=== PATIENT | male | born 1945 ===

== ENCOUNTER 2017-02-28 09:36 | Day surgery (SDC) | payer OTHER ==
[~2017-02-28 09:36] MED LIST: ACET325 PO; ANCEF 1 GM1 GM/50 ML IV; ASPI81CH PO; ASPI81EC PO; ATEN50 PO; BISA5EC PO; Bactrim Ds Tab1 EACH PO; CALCA500CH PO; CEPH500 PO; CHOL10002 PO; CLOB.05TC TOP; CLOB.05TO TP; DESO.05TCA TOP; DOCU100 PO; Desyrel50 MG PO; FLONASE ALLERG9.9 ML; FLONASE ALLERG9.9 ML NS; FOLI1 PO; FURO40 PO; Flomax0.4 MG PO; Flonase 0.05% N16 GM; GLIP5 PO; GLUC500 PO; HYDACE10B PO; HYDACE5 PO; HYDR1TAB94 PO; INS70/30I SUBQ; INSU100I6 SC; INSUASPI SC; INSULANI SUBQ; INSULANPEN SC; INSULANPEN SQ; IRON PO; IRON325 MG PO; K-Dur20 MEQ PO; Keflex500 MG PO; LEVE500 PO; LEVEMIR FL100 UNIT/1 SC; LIDO2L TOP; LISI20 PO; Lisinopril2.5 MG PO; MAGNESIUM250 MG PO; MELA3 PO; METF500 PO; METTREX2.5 PO; NYST100TO TOP; NYSTRITC TOP; Norco 10-325 T1 EACH; Norco 10-325 T1 EACH PO; Norco 5-325 Ta1 EACH PO; Novolog Fl100 UNIT/1 SC; OMEP20ER PO; Omeprazole20 M1 PO; POTA10T PO; POTASSIUM PO; POTCHL20ER PO; POTPHO PO; Percocet 5-3251 EACH PO; Phos-Nak Packe1 EACH PO; SENN187 PO; SULTRIDS PO; TAMS.4ER PO; TOUJEO SOL300 UNIT/1 SC; TRAZ100 PO; TRIA80TC TOP; Vibramycin100 MG PO; Voltaren100 GM TP; XARELTO10 MG PO; XARELTO15 MG PO
[2017-04-17] MEDS ORDERED: FURO40 PO (09:22)
[2017-04-17] MEDS ORDERED: BISA10S PR (09:22)
[2017-04-17] MEDS ORDERED: BISM87SU PO (09:23)
[2017-04-17] MEDS ORDERED: CVS DISPOSABLE399 ML (09:23)
[2017-04-17] MEDS ORDERED: [UNRECOGNIZED DRUG - OTHER] (09:23)
[2017-04-17] MEDS ORDERED: Voltaren100 GM TOP (09:24)
[2017-04-17] MEDS ORDERED: ACET325 PO (09:24)
[2017-04-17] MEDS ORDERED: Milk Of Ma400 MG/5 M PO (09:24)
[2017-04-17] MEDS ORDERED: HYDR1TAB94 PO (09:25)
[2017-04-17] MEDS ORDERED: DOCU100 PO (20:42)
[2017-04-17] MEDS ORDERED: POTCHL20ER PO (20:46)
[2017-04-17] MEDS ORDERED: TOUJEO SOL300 UNIT/1 SC (20:49)
[2017-04-17] MEDS ORDERED: XARELTO20 MG PO (20:51)
[2017-04-19] MEDS ORDERED: LEVFLO500 PO (09:32)
[2017-04-19] MEDS ORDERED: Novolog Fl100 UNIT/1 SC (09:32)
[2017-05-07] MEDS ORDERED: K-Dur20 MEQ PO (14:46)
[2017-09-20] MEDS ORDERED: Lisinopril2.5 MG PO (18:00)
[2017-09-20] MEDS ORDERED: AQUAPHOR99 GM TOP (18:02)
[2017-09-20] MEDS ORDERED: ASPERCREME76.5 GM TOP (18:03)
[2017-09-20] MEDS ORDERED: CLOB.05TO TOP (18:05)
[2017-09-20] MEDS ORDERED: Milk Of Ma400 MG/5 M PO (18:07)
[2017-09-21] MEDS ORDERED: SUPRAX400 MG PO (13:56)
== END 2017-02-28 23:21 | disposition home or self-care (01) ==
LOC: WOUND 09:36
DX: Z48.00 Encounter for change or removal of nonsurgical wound dressing (principal); L97.922 Non-pressure chronic ulcer of unspecified part of left lower leg with fat layer exposed; I89.0 Lymphedema, not elsewhere classified; M70.21 Olecranon bursitis, right elbow; S60.512A Abrasion of left hand, initial encounter
CPT/HCPCS: G0463

== ENCOUNTER 2017-03-07 10:00 | Day surgery (SDC) | payer OTHER ==
[2017-04-17] MEDS ORDERED: BISA10S PR (09:22)
[2017-04-17] MEDS ORDERED: FURO40 PO (09:22)
[2017-04-17] MEDS ORDERED: [UNRECOGNIZED DRUG - OTHER] (09:23)
[2017-04-17] MEDS ORDERED: CVS DISPOSABLE399 ML (09:23)
[2017-04-17] MEDS ORDERED: BISM87SU PO (09:23)
[2017-04-17] MEDS ORDERED: Milk Of Ma400 MG/5 M PO (09:24)
[2017-04-17] MEDS ORDERED: Voltaren100 GM TOP (09:24)
[2017-04-17] MEDS ORDERED: ACET325 PO (09:24)
[2017-04-17] MEDS ORDERED: HYDR1TAB94 PO (09:25)
[2017-04-17] MEDS ORDERED: DOCU100 PO (20:42)
[2017-04-17] MEDS ORDERED: POTCHL20ER PO (20:46)
[2017-04-17] MEDS ORDERED: TOUJEO SOL300 UNIT/1 SC (20:49)
[2017-04-17] MEDS ORDERED: XARELTO20 MG PO (20:51)
[2017-04-19] MEDS ORDERED: LEVFLO500 PO (09:32)
[2017-04-19] MEDS ORDERED: Novolog Fl100 UNIT/1 SC (09:32)
[2017-05-07] MEDS ORDERED: K-Dur20 MEQ PO (14:46)
[2017-09-20] MEDS ORDERED: Lisinopril2.5 MG PO (18:00)
[2017-09-20] MEDS ORDERED: AQUAPHOR99 GM TOP (18:02)
[2017-09-20] MEDS ORDERED: ASPERCREME76.5 GM TOP (18:03)
[2017-09-20] MEDS ORDERED: CLOB.05TO TOP (18:05)
[2017-09-20] MEDS ORDERED: Milk Of Ma400 MG/5 M PO (18:07)
[2017-09-21] MEDS ORDERED: SUPRAX400 MG PO (13:56)
== END 2017-03-07 11:12 | disposition home or self-care (01) ==
LOC: WOUND 10:00
DX: Z48.00 Encounter for change or removal of nonsurgical wound dressing (principal); L97.922 Non-pressure chronic ulcer of unspecified part of left lower leg with fat layer exposed; I89.0 Lymphedema, not elsewhere classified; M70.21 Olecranon bursitis, right elbow; S60.512A Abrasion of left hand, initial encounter
CPT/HCPCS: G0463

== ENCOUNTER 2017-03-14 10:00 | Day surgery (SDC) | payer OTHER ==
[2017-04-17] MEDS ORDERED: FURO40 PO (09:22)
[2017-04-17] MEDS ORDERED: BISA10S PR (09:22)
[2017-04-17] MEDS ORDERED: CVS DISPOSABLE399 ML (09:23)
[2017-04-17] MEDS ORDERED: [UNRECOGNIZED DRUG - OTHER] (09:23)
[2017-04-17] MEDS ORDERED: BISM87SU PO (09:23)
[2017-04-17] MEDS ORDERED: ACET325 PO (09:24)
[2017-04-17] MEDS ORDERED: Milk Of Ma400 MG/5 M PO (09:24)
[2017-04-17] MEDS ORDERED: Voltaren100 GM TOP (09:24)
[2017-04-17] MEDS ORDERED: HYDR1TAB94 PO (09:25)
[2017-04-17] MEDS ORDERED: DOCU100 PO (20:42)
[2017-04-17] MEDS ORDERED: POTCHL20ER PO (20:46)
[2017-04-17] MEDS ORDERED: TOUJEO SOL300 UNIT/1 SC (20:49)
[2017-04-17] MEDS ORDERED: XARELTO20 MG PO (20:51)
[2017-04-19] MEDS ORDERED: Novolog Fl100 UNIT/1 SC (09:32)
[2017-04-19] MEDS ORDERED: LEVFLO500 PO (09:32)
[2017-05-07] MEDS ORDERED: K-Dur20 MEQ PO (14:46)
[2017-09-20] MEDS ORDERED: Lisinopril2.5 MG PO (18:00)
[2017-09-20] MEDS ORDERED: AQUAPHOR99 GM TOP (18:02)
[2017-09-20] MEDS ORDERED: ASPERCREME76.5 GM TOP (18:03)
[2017-09-20] MEDS ORDERED: CLOB.05TO TOP (18:05)
[2017-09-20] MEDS ORDERED: Milk Of Ma400 MG/5 M PO (18:07)
[2017-09-21] MEDS ORDERED: SUPRAX400 MG PO (13:56)
== END 2017-03-14 11:02 | disposition home or self-care (01) ==
LOC: WOUND 10:00
DX: Z48.00 Encounter for change or removal of nonsurgical wound dressing (principal); L97.922 Non-pressure chronic ulcer of unspecified part of left lower leg with fat layer exposed; I89.0 Lymphedema, not elsewhere classified; M70.21 Olecranon bursitis, right elbow; S60.512A Abrasion of left hand, initial encounter
CPT/HCPCS: G0463

== ENCOUNTER → 2017-03-19 | Outpatient (CLI) | payer OTHER ==
[~2017-03-19] MED LIST changes: +AQUAPHOR99 GM TOP; +ASPERCREME76.5 GM TOP; +AZIT500 PO; +BISA10S PR; +BISM87SU PO; +BUME2 PO; +CLOB.05TO TOP; +CVS DISPOSABLE399 ML; +Ferrex 150 For1 EACH PO; +LEVFLO500 PO; +MAGOXI400 PO; +Milk Of Ma400 MG/5 M PO; +NITR100CA PO; +SUPRAX400 MG PO; +Voltaren100 GM TOP; +XARELTO20 MG PO; +[UNRECOGNIZED DRUG - OTHER]
[2017-03-19 14:53] LABS: Source, Urine Catheter
[2017-03-19 16:13] LABS: Appearance, Urine Hazy (Clear); Bilirubin, Urine Neg (Neg); Blood, Urine 5+ (Neg); Glucose Qualitative, Urine 4+ (Neg); Ketones, Urine Neg (Neg); Leukocyte Esterase, Urine 3+ (Neg); Nitrite, Urine Neg (Neg); Protein, Urine Neg (Neg); Urobilinogen, Urine NORM (Normal)
[2017-03-19 16:28] LABS: Color, Urine Amber (P-Yellow)
[2017-03-19 16:33] LABS: Yeast/Fungi Urine Few /hpf
[2017-03-19 16:34] LABS: Red Blood Cells, Urine 25-50 /hpf (0-2); Squamous Epithelial Cells Not Seen /hpf (Few)
[2017-03-19 16:35] LABS: Bacteria Few /hpf
== END | disposition home or self-care (01) ==
LOC: LAB 14:52
DX: Z09 Encounter for follow-up examination after completed treatment for conditions other than malignant neoplasm (principal); Z87.440 Personal history of urinary (tract) infections
CPT/HCPCS: 81001; 87086

== ENCOUNTER 2017-03-28 00:52 | Day surgery (SDC) | payer OTHER ==
[~2017-03-28 00:52] MED LIST changes: -AQUAPHOR99 GM TOP; -ASPERCREME76.5 GM TOP; -AZIT500 PO; -BISA10S PR; -BISM87SU PO; -BUME2 PO; -CLOB.05TO TOP; -CVS DISPOSABLE399 ML; -Ferrex 150 For1 EACH PO; -LEVFLO500 PO; -MAGOXI400 PO; -Milk Of Ma400 MG/5 M PO; -NITR100CA PO; -SUPRAX400 MG PO; -Voltaren100 GM TOP; -XARELTO20 MG PO; -[UNRECOGNIZED DRUG - OTHER]
[2017-04-17] MEDS ORDERED: BISA10S PR (09:22)
[2017-04-17] MEDS ORDERED: FURO40 PO (09:22)
[2017-04-17] MEDS ORDERED: [UNRECOGNIZED DRUG - OTHER] (09:23)
[2017-04-17] MEDS ORDERED: CVS DISPOSABLE399 ML (09:23)
[2017-04-17] MEDS ORDERED: BISM87SU PO (09:23)
[2017-04-17] MEDS ORDERED: Voltaren100 GM TOP (09:24)
[2017-04-17] MEDS ORDERED: Milk Of Ma400 MG/5 M PO (09:24)
[2017-04-17] MEDS ORDERED: ACET325 PO (09:24)
[2017-04-17] MEDS ORDERED: HYDR1TAB94 PO (09:25)
[2017-04-17] MEDS ORDERED: DOCU100 PO (20:42)
[2017-04-17] MEDS ORDERED: POTCHL20ER PO (20:46)
[2017-04-17] MEDS ORDERED: TOUJEO SOL300 UNIT/1 SC (20:49)
[2017-04-17] MEDS ORDERED: XARELTO20 MG PO (20:51)
[2017-04-19] MEDS ORDERED: LEVFLO500 PO (09:32)
[2017-04-19] MEDS ORDERED: Novolog Fl100 UNIT/1 SC (09:32)
[2017-05-07] MEDS ORDERED: K-Dur20 MEQ PO (14:46)
[2017-09-20] MEDS ORDERED: Lisinopril2.5 MG PO (18:00)
[2017-09-20] MEDS ORDERED: AQUAPHOR99 GM TOP (18:02)
[2017-09-20] MEDS ORDERED: ASPERCREME76.5 GM TOP (18:03)
[2017-09-20] MEDS ORDERED: CLOB.05TO TOP (18:05)
[2017-09-20] MEDS ORDERED: Milk Of Ma400 MG/5 M PO (18:07)
[2017-09-21] MEDS ORDERED: SUPRAX400 MG PO (13:56)
== END 2017-03-28 22:55 | disposition home or self-care (01) ==
LOC: WOUND 00:52
PROC: 0HBLXZZ Excision of Left Lower Leg Skin, External Approach (ICD-10-PCS; principal; 2017-03-28)
DX: Z48.00 Encounter for change or removal of nonsurgical wound dressing (principal); E11.622 Type 2 diabetes mellitus with other skin ulcer; L97.922 Non-pressure chronic ulcer of unspecified part of left lower leg with fat layer exposed; I89.0 Lymphedema, not elsewhere classified; M70.21 Olecranon bursitis, right elbow; S60.512A Abrasion of left hand, initial encounter; Z79.4 Long term (current) use of insulin
CPT/HCPCS: G0463

== ENCOUNTER 2017-04-04 10:00 | Day surgery (SDC) | payer OTHER ==
[2017-04-17] MEDS ORDERED: BISA10S PR (09:22)
[2017-04-17] MEDS ORDERED: FURO40 PO (09:22)
[2017-04-17] MEDS ORDERED: [UNRECOGNIZED DRUG - OTHER] (09:23)
[2017-04-17] MEDS ORDERED: CVS DISPOSABLE399 ML (09:23)
[2017-04-17] MEDS ORDERED: BISM87SU PO (09:23)
[2017-04-17] MEDS ORDERED: Milk Of Ma400 MG/5 M PO (09:24)
[2017-04-17] MEDS ORDERED: ACET325 PO (09:24)
[2017-04-17] MEDS ORDERED: Voltaren100 GM TOP (09:24)
[2017-04-17] MEDS ORDERED: HYDR1TAB94 PO (09:25)
[2017-04-17] MEDS ORDERED: DOCU100 PO (20:42)
[2017-04-17] MEDS ORDERED: POTCHL20ER PO (20:46)
[2017-04-17] MEDS ORDERED: TOUJEO SOL300 UNIT/1 SC (20:49)
[2017-04-17] MEDS ORDERED: XARELTO20 MG PO (20:51)
[2017-04-19] MEDS ORDERED: Novolog Fl100 UNIT/1 SC (09:32)
[2017-04-19] MEDS ORDERED: LEVFLO500 PO (09:32)
[2017-05-07] MEDS ORDERED: K-Dur20 MEQ PO (14:46)
[2017-09-20] MEDS ORDERED: Lisinopril2.5 MG PO (18:00)
[2017-09-20] MEDS ORDERED: AQUAPHOR99 GM TOP (18:02)
[2017-09-20] MEDS ORDERED: ASPERCREME76.5 GM TOP (18:03)
[2017-09-20] MEDS ORDERED: CLOB.05TO TOP (18:05)
[2017-09-20] MEDS ORDERED: Milk Of Ma400 MG/5 M PO (18:07)
[2017-09-21] MEDS ORDERED: SUPRAX400 MG PO (13:56)
== END 2017-04-04 14:20 | disposition home or self-care (01) ==
LOC: WOUND 10:00
DX: Z48.00 Encounter for change or removal of nonsurgical wound dressing (principal); L97.922 Non-pressure chronic ulcer of unspecified part of left lower leg with fat layer exposed; I89.0 Lymphedema, not elsewhere classified; M70.21 Olecranon bursitis, right elbow; S60.512A Abrasion of left hand, initial encounter
CPT/HCPCS: G0463

== ENCOUNTER 2017-04-12 00:42 | Day surgery (SDC) | payer OTHER ==
[2017-04-17] MEDS ORDERED: FURO40 PO (09:22)
[2017-04-17] MEDS ORDERED: BISA10S PR (09:22)
[2017-04-17] MEDS ORDERED: CVS DISPOSABLE399 ML (09:23)
[2017-04-17] MEDS ORDERED: BISM87SU PO (09:23)
[2017-04-17] MEDS ORDERED: [UNRECOGNIZED DRUG - OTHER] (09:23)
[2017-04-17] MEDS ORDERED: Voltaren100 GM TOP (09:24)
[2017-04-17] MEDS ORDERED: ACET325 PO (09:24)
[2017-04-17] MEDS ORDERED: Milk Of Ma400 MG/5 M PO (09:24)
[2017-04-17] MEDS ORDERED: HYDR1TAB94 PO (09:25)
[2017-04-17] MEDS ORDERED: DOCU100 PO (20:42)
[2017-04-17] MEDS ORDERED: POTCHL20ER PO (20:46)
[2017-04-17] MEDS ORDERED: TOUJEO SOL300 UNIT/1 SC (20:49)
[2017-04-17] MEDS ORDERED: XARELTO20 MG PO (20:51)
[2017-04-19] MEDS ORDERED: Novolog Fl100 UNIT/1 SC (09:32)
[2017-04-19] MEDS ORDERED: LEVFLO500 PO (09:32)
[2017-05-07] MEDS ORDERED: K-Dur20 MEQ PO (14:46)
== END 2017-04-12 22:00 | disposition home or self-care (01) ==
LOC: WOUND 00:42
DX: Z48.00 Encounter for change or removal of nonsurgical wound dressing (principal); L97.922 Non-pressure chronic ulcer of unspecified part of left lower leg with fat layer exposed; I89.0 Lymphedema, not elsewhere classified; M70.21 Olecranon bursitis, right elbow; S60.512A Abrasion of left hand, initial encounter
CPT/HCPCS: G0463

== ENCOUNTER 2017-04-17 08:54 | Inpatient (IN) | END 2017-04-19 10:51 | disposition home or self-care (01) | DRG 871 ==

== ENCOUNTER 2017-04-25 00:56 | Day surgery (SDC) | payer OTHER ==
[~2017-04-25 00:56] MED LIST changes: +BISA10S PR; +BISM87SU PO; +CVS DISPOSABLE399 ML; +LEVFLO500 PO; +Milk Of Ma400 MG/5 M PO; +Voltaren100 GM TOP; +XARELTO20 MG PO; +[UNRECOGNIZED DRUG - OTHER]
[2017-05-07] MEDS ORDERED: K-Dur20 MEQ PO (14:46)
[2017-09-20] MEDS ORDERED: Lisinopril2.5 MG PO (18:00)
[2017-09-20] MEDS ORDERED: AQUAPHOR99 GM TOP (18:02)
[2017-09-20] MEDS ORDERED: ASPERCREME76.5 GM TOP (18:03)
[2017-09-20] MEDS ORDERED: CLOB.05TO TOP (18:05)
[2017-09-20] MEDS ORDERED: Milk Of Ma400 MG/5 M PO (18:07)
[2017-09-21] MEDS ORDERED: SUPRAX400 MG PO (13:56)
== END 2017-04-25 23:01 | disposition home or self-care (01) ==
LOC: WOUND 00:56
DX: Z48.00 Encounter for change or removal of nonsurgical wound dressing (principal); E11.622 Type 2 diabetes mellitus with other skin ulcer; L97.922 Non-pressure chronic ulcer of unspecified part of left lower leg with fat layer exposed; I89.0 Lymphedema, not elsewhere classified; M70.21 Olecranon bursitis, right elbow; S60.512A Abrasion of left hand, initial encounter; I87.2 Venous insufficiency (chronic) (peripheral)
CPT/HCPCS: G0463

== ENCOUNTER 2017-05-02 10:00 | Day surgery (SDC) | payer OTHER ==
[2017-05-07] MEDS ORDERED: K-Dur20 MEQ PO (14:46)
[2017-09-20] MEDS ORDERED: Lisinopril2.5 MG PO (18:00)
[2017-09-20] MEDS ORDERED: AQUAPHOR99 GM TOP (18:02)
[2017-09-20] MEDS ORDERED: ASPERCREME76.5 GM TOP (18:03)
[2017-09-20] MEDS ORDERED: CLOB.05TO TOP (18:05)
[2017-09-20] MEDS ORDERED: Milk Of Ma400 MG/5 M PO (18:07)
[2017-09-21] MEDS ORDERED: SUPRAX400 MG PO (13:56)
== END 2017-05-02 22:39 | disposition home or self-care (01) ==
LOC: WOUND 10:00
PROC: 2W1RX6Z Compression of Left Lower Leg using Pressure Dressing (ICD-10-PCS; principal; 2017-05-02)
DX: E11.622 Type 2 diabetes mellitus with other skin ulcer (principal); L97.922 Non-pressure chronic ulcer of unspecified part of left lower leg with fat layer exposed; I89.0 Lymphedema, not elsewhere classified; M70.21 Olecranon bursitis, right elbow; S60.512A Abrasion of left hand, initial encounter; I87.2 Venous insufficiency (chronic) (peripheral)
CPT/HCPCS: 87070; 87075; 87077; 87186; 87205; G0463

== ENCOUNTER 2017-05-07 10:04 | Day surgery (SDC) | payer OTHER ==
[2017-05-07] MEDS ORDERED: K-Dur20 MEQ PO ×2 (14:46)
[2017-09-20] MEDS ORDERED: Lisinopril2.5 MG PO (18:00)
[2017-09-20] MEDS ORDERED: AQUAPHOR99 GM TOP (18:02)
[2017-09-20] MEDS ORDERED: ASPERCREME76.5 GM TOP (18:03)
[2017-09-20] MEDS ORDERED: CLOB.05TO TOP (18:05)
[2017-09-20] MEDS ORDERED: Milk Of Ma400 MG/5 M PO (18:07)
[2017-09-21] MEDS ORDERED: SUPRAX400 MG PO (13:56)
== END 2017-05-07 10:31 | disposition home or self-care (01) ==
LOC: WOUND 10:04
DX: E11.622 Type 2 diabetes mellitus with other skin ulcer (principal); L97.922 Non-pressure chronic ulcer of unspecified part of left lower leg with fat layer exposed; I89.0 Lymphedema, not elsewhere classified; M70.21 Olecranon bursitis, right elbow; S60.512A Abrasion of left hand, initial encounter; I87.2 Venous insufficiency (chronic) (peripheral)
CPT/HCPCS: G0463

== ENCOUNTER 2017-05-07 10:35 | Emergency (ER) | payer OTHER ==
[~2017-05-07] VITALS: Ht 177.8 cm; Wt 122.5 kg
[2017-05-07 11:07] LABS: BASOPHILS ABSOLUTE AUTO 0.04 K/mm3 (0.00-0.23); BASOPHILS PERCENT AUTO 0 % (0-2); EOSINOPHILS ABSOLUTE AUTO 0.17 K/mm3 (0.00-0.68); EOSINOPHILS PERCENT AUTO 2 % (0-6); Hematocrit 32.5 % (37.0-53.0); IMMATURE GRAN ABSOLUTE AUTO 0.02 K/mm3 (0.00-0.10); IMMATURE GRAN PERCENT AUTO 0 % (0-1); LYMPHOCYTES ABSOLUTE AUTO 2.44 K/mm3 (0.84-5.20); LYMPHOCYTES PERCENT AUTO 25 % (21-46); MONOCYTES ABSOLUTE AUTO 0.85 K/mm3 (0.16-1.47); MONOCYTES PERCENT AUTO 9 % (4-13); Mean Corpuscular HGB 26.7 pg (26.0-34.0); Mean Corpuscular HGB Conc 30.8 g/dL (31.5-36.5); Mean Corpuscular Volume 87 fL (80-100); NEUTROPHILS ABSOLUTE AUTO 6.13 K/mm3 (1.96-9.15); NEUTROPHILS PERCENT AUTO 64 % (41-73); Platelet Count 206 K/mm3 (150-400); RDW Coefficient Variation 16.4 % (11.7-14.2); RDW Standard Deviation 50.8 fL (35.1-46.3); Red Blood Cell Count 3.74 M/mm3 (4.30-5.90); White Blood Cell Count 9.65 K/mm3 (4.00-11.30)
[2017-05-07 11:25] LABS: Albumin, Blood 2.3 g/dL (3.4-5.0); Albumin/Globulin Ratio 0.4 (0.8-1.8); Bilirubin, Total 0.6 mg/dL (0.1-1.0); Bun/Creatinine Ratio 21.1 (12.0-20.0); Calcium, Blood 9.5 mg/dL (8.5-10.1); Creatinine, Blood 1.94 mg/dL (0.60-1.20); Globulin, Blood 6.5 g/dL (2.2-4.0); Potassium, Blood 3.2 mmol/L (3.5-5.5); Total Protein, Blood 8.8 g/dL (6.4-8.2)
[2017-05-07] MEDS ORDERED: K-Dur20 MEQ PO ×2 (14:46)
[2017-09-20] MEDS ORDERED: Lisinopril2.5 MG PO (18:00)
[2017-09-20] MEDS ORDERED: AQUAPHOR99 GM TOP (18:02)
[2017-09-20] MEDS ORDERED: ASPERCREME76.5 GM TOP (18:03)
[2017-09-20] MEDS ORDERED: CLOB.05TO TOP (18:05)
[2017-09-20] MEDS ORDERED: Milk Of Ma400 MG/5 M PO (18:07)
[2017-09-21] MEDS ORDERED: SUPRAX400 MG PO (13:56)
== END 2017-05-07 14:15 | disposition home or self-care (01) ==
LOC: ER 10:35
PROVIDERS: Emergency Medicine
DX: R53.1 Weakness (principal); I12.9 Hypertensive chronic kidney disease with stage 1 through stage 4 chronic kidney disease, or unspecified chronic kidney disease; E11.22 Type 2 diabetes mellitus with diabetic chronic kidney disease; N18.9 Chronic kidney disease, unspecified; Z79.899 Other long term (current) drug therapy; Z79.82 Long term (current) use of aspirin; Z79.4 Long term (current) use of insulin; Z87.891 Personal history of nicotine dependence
CPT/HCPCS: 36415; 71046; 80053; 85025; 93005; 93010; 99283; J7030

== ENCOUNTER 2017-05-16 09:58 | Day surgery (SDC) | payer OTHER ==
[2017-09-20] MEDS ORDERED: Lisinopril2.5 MG PO (18:00)
[2017-09-20] MEDS ORDERED: AQUAPHOR99 GM TOP (18:02)
[2017-09-20] MEDS ORDERED: ASPERCREME76.5 GM TOP (18:03)
[2017-09-20] MEDS ORDERED: CLOB.05TO TOP (18:05)
[2017-09-20] MEDS ORDERED: Milk Of Ma400 MG/5 M PO (18:07)
[2017-09-21] MEDS ORDERED: SUPRAX400 MG PO (13:56)
== END 2017-05-16 11:29 | disposition home or self-care (01) ==
LOC: WOUND 09:58
PROC: 0H5 Skin and Breast, Destruction (ICD-10-PCS; principal; 2017-05-16)
DX: Z48.01 Encounter for change or removal of surgical wound dressing (principal); E11.622 Type 2 diabetes mellitus with other skin ulcer; L97.922 Non-pressure chronic ulcer of unspecified part of left lower leg with fat layer exposed; I89.0 Lymphedema, not elsewhere classified; I87.2 Venous insufficiency (chronic) (peripheral); K74.60 Unspecified cirrhosis of liver; Z79.01 Long term (current) use of anticoagulants; Z86.718 Personal history of other venous thrombosis and embolism
CPT/HCPCS: G0463

== ENCOUNTER 2017-05-23 00:48 | Day surgery (SDC) | payer OTHER | END 2017-05-23 22:59 | disposition home or self-care (01) | LOC: WOUND | DX: Z48.00 Encounter for change or removal of nonsurgical wound dressing (principal); E11.622 Type 2 diabetes mellitus with other skin ulcer; L97.922 Non-pressure chronic ulcer of unspecified part of left lower leg with fat layer exposed; I89.0 Lymphedema, not elsewhere classified; M70.21 Olecranon bursitis, right elbow; S60.512A Abrasion of left hand, initial encounter; I87.2 Venous insufficiency (chronic) (peripheral); Z79.4 Long term (current) use of insulin | CPT/HCPCS: G0463 ==

== ENCOUNTER 2017-05-30 10:00 | Day surgery (SDC) | payer OTHER | END 2017-05-30 22:52 | disposition home or self-care (01) | LOC: WOUND 10:00 | DX: Z48.00 Encounter for change or removal of nonsurgical wound dressing (principal); L97.922 Non-pressure chronic ulcer of unspecified part of left lower leg with fat layer exposed; I89.0 Lymphedema, not elsewhere classified; M70.21 Olecranon bursitis, right elbow; S60.512A Abrasion of left hand, initial encounter; I87.2 Venous insufficiency (chronic) (peripheral); Z79.4 Long term (current) use of insulin | CPT/HCPCS: G0463 ==

== ENCOUNTER 2017-06-06 09:49 | Day surgery (SDC) | payer OTHER | END 2017-06-06 22:46 | disposition home or self-care (01) | LOC: WOUND 09:49 | PROC: 2W1RX6Z Compression of Left Lower Leg using Pressure Dressing (ICD-10-PCS; principal; 2017-06-06) | DX: L97.922 Non-pressure chronic ulcer of unspecified part of left lower leg with fat layer exposed (principal); I89.0 Lymphedema, not elsewhere classified; M70.21 Olecranon bursitis, right elbow; S60.512A Abrasion of left hand, initial encounter; I87.2 Venous insufficiency (chronic) (peripheral); E11.9 Type 2 diabetes mellitus without complications | CPT/HCPCS: G0463 ==

== ENCOUNTER 2017-06-13 09:55 | Day surgery (SDC) | payer OTHER | END 2017-06-13 22:48 | disposition home or self-care (01) | LOC: WOUND 09:55 | PROC: 2W1RX6Z Compression of Left Lower Leg using Pressure Dressing (ICD-10-PCS; principal; 2017-06-13) | DX: E11.622 Type 2 diabetes mellitus with other skin ulcer (principal); L97.922 Non-pressure chronic ulcer of unspecified part of left lower leg with fat layer exposed; I89.0 Lymphedema, not elsewhere classified; M70.21 Olecranon bursitis, right elbow; S60.512A Abrasion of left hand, initial encounter; I87.2 Venous insufficiency (chronic) (peripheral) | CPT/HCPCS: G0463 ==

== ENCOUNTER 2017-06-18 15:35 | Inpatient (IN) | payer OTHER ==
[~2017-06-18] VITALS: Ht 177.8 cm; Wt 125.9 kg
[2017-06-18 16:49] LABS: BASOPHILS ABSOLUTE AUTO 0.03 K/mm3 (0.00-0.23); BASOPHILS PERCENT AUTO 0 % (0-2); EOSINOPHILS ABSOLUTE AUTO 0.06 K/mm3 (0.00-0.68); EOSINOPHILS PERCENT AUTO 1 % (0-6); Hematocrit 35.8 % (37.0-53.0); Hemoglobin 10.6 g/dL (13.5-17.5); IMMATURE GRAN ABSOLUTE AUTO 0.02 K/mm3 (0.00-0.10); IMMATURE GRAN PERCENT AUTO 0 % (0-1); LYMPHOCYTES ABSOLUTE AUTO 2.47 K/mm3 (0.84-5.20); LYMPHOCYTES PERCENT AUTO 33 % (21-46); MONOCYTES ABSOLUTE AUTO 0.67 K/mm3 (0.16-1.47); MONOCYTES PERCENT AUTO 9 % (4-13); Mean Corpuscular HGB 28.7 pg (26.0-34.0); Mean Corpuscular HGB Conc 29.6 g/dL (31.5-36.5); Mean Corpuscular Volume 97 fL (80-100); Mean Platelet Volume 9.4 fL (9.1-12.4); NEUTROPHILS ABSOLUTE AUTO 4.32 K/mm3 (1.96-9.15); NEUTROPHILS PERCENT AUTO 57 % (41-73); Platelet Count 101 K/mm3 (150-400); RDW Coefficient Variation 22.5 % (11.7-14.2); RDW Standard Deviation 78.1 fL (35.1-46.3); Red Blood Cell Count 3.69 M/mm3 (4.30-5.90); White Blood Cell Count 7.57 K/mm3 (4.00-11.30)
[2017-06-18 17:10] LABS: Influenza A Negative (NEGATIVE); Influenza B Negative (NEGATIVE)
[2017-06-18 17:11] LABS: Anion Gap 6 mmol/L (6-16); Blood Urea Nitrogen 11 mg/dL (8-24); Bun/Creatinine Ratio 13.9 (12.0-20.0); CO2, Blood 30 mmol/L (21-32); Calcium, Blood 8.9 mg/dL (8.5-10.1); Chloride, Blood 104 mmol/L (98-108); Creatinine, Blood 0.79 mg/dL (0.60-1.20); Glomerular Filtration Rate >60 (60-); Glucose, Blood 64 mg/dL (70-99); Potassium, Blood 3.2 mmol/L (3.5-5.5); Sodium, Blood 140 mmol/L (136-145)
[2017-06-18] MEDS ORDERED: NITR100CA PO (17:36)
[2017-06-18] MEDS ORDERED: BUME2 PO (17:36)
[2017-06-18] MEDS ORDERED: Ferrex 150 For1 EACH PO (17:37)
[2017-06-18] MEDS ORDERED: MAGOXI400 PO (17:38)
[2017-06-19 05:27] LABS: BASOPHILS ABSOLUTE AUTO 0.01 K/mm3 (0.00-0.23); BASOPHILS PERCENT AUTO 0 % (0-2); EOSINOPHILS ABSOLUTE AUTO 0.04 K/mm3 (0.00-0.68); EOSINOPHILS PERCENT AUTO 1 % (0-6); Hematocrit 33.8 % (37.0-53.0); Hemoglobin 10.2 g/dL (13.5-17.5); IMMATURE GRAN ABSOLUTE AUTO 0.01 K/mm3 (0.00-0.10); IMMATURE GRAN PERCENT AUTO 0 % (0-1); LYMPHOCYTES ABSOLUTE AUTO 1.31 K/mm3 (0.84-5.20); LYMPHOCYTES PERCENT AUTO 28 % (21-46); MONOCYTES PERCENT AUTO 9 % (4-13); Mean Corpuscular HGB 28.7 pg (26.0-34.0); Mean Corpuscular HGB Conc 30.2 g/dL (31.5-36.5); Mean Corpuscular Volume 95 fL (80-100); Mean Platelet Volume 8.9 fL (9.1-12.4); NEUTROPHILS PERCENT AUTO 62 % (41-73); Platelet Count 102 K/mm3 (150-400); RDW Coefficient Variation 22.6 % (11.7-14.2); RDW Standard Deviation 77.4 fL (35.1-46.3); Red Blood Cell Count 3.55 M/mm3 (4.30-5.90); White Blood Cell Count 4.67 K/mm3 (4.00-11.30)
[2017-06-19 05:49] LABS: Alanine Aminotransfer (ALT/SGP 14 U/L (12-78); Albumin, Blood 2.5 g/dL (3.4-5.0); Albumin/Globulin Ratio 0.4 (0.8-1.8); Alk Phos 116 U/L (50-136); Anion Gap 7 mmol/L (6-16); Aspartate Aminotrans (AST/SGOT 29 U/L (12-37); Bilirubin, Total 0.7 mg/dL (0.1-1.0); Blood Urea Nitrogen 9 mg/dL (8-24); Bun/Creatinine Ratio 10.7 (12.0-20.0); CO2, Blood 32 mmol/L (21-32); Calcium, Blood 8.4 mg/dL (8.5-10.1); Chloride, Blood 103 mmol/L (98-108); Creatinine, Blood 0.84 mg/dL (0.60-1.20); Globulin, Blood 5.7 g/dL (2.2-4.0); Glomerular Filtration Rate >60 (60-); Glucose, Blood 68 mg/dL (70-99); Sodium, Blood 142 mmol/L (136-145); Total Protein, Blood 8.2 g/dL (6.4-8.2)
[2017-06-20 05:33] LABS: BASOPHILS ABSOLUTE AUTO 0.02 K/mm3 (0.00-0.23); BASOPHILS PERCENT AUTO 1 % (0-2); EOSINOPHILS ABSOLUTE AUTO 0.08 K/mm3 (0.00-0.68); EOSINOPHILS PERCENT AUTO 2 % (0-6); Hematocrit 31.9 % (37.0-53.0); Hemoglobin 9.4 g/dL (13.5-17.5); IMMATURE GRAN ABSOLUTE AUTO 0.01 K/mm3 (0.00-0.10); IMMATURE GRAN PERCENT AUTO 0 % (0-1); LYMPHOCYTES PERCENT AUTO 31 % (21-46); MONOCYTES ABSOLUTE AUTO 0.32 K/mm3 (0.16-1.47); MONOCYTES PERCENT AUTO 8 % (4-13); Mean Corpuscular HGB 28.1 pg (26.0-34.0); Mean Corpuscular HGB Conc 29.5 g/dL (31.5-36.5); Mean Corpuscular Volume 96 fL (80-100); Mean Platelet Volume 9.2 fL (9.1-12.4); NEUTROPHILS PERCENT AUTO 57 % (41-73); Platelet Count 84 K/mm3 (150-400); RDW Coefficient Variation 22.5 % (11.7-14.2); RDW Standard Deviation 77.4 fL (35.1-46.3); Red Blood Cell Count 3.34 M/mm3 (4.30-5.90); White Blood Cell Count 3.83 K/mm3 (4.00-11.30)
[2017-06-20 05:55] LABS: Alanine Aminotransfer (ALT/SGP 11 U/L (12-78); Albumin, Blood 2.4 g/dL (3.4-5.0); Albumin/Globulin Ratio 0.4 (0.8-1.8); Alk Phos 104 U/L (50-136); Anion Gap 4 mmol/L (6-16); Aspartate Aminotrans (AST/SGOT 28 U/L (12-37); Bilirubin, Total 0.6 mg/dL (0.1-1.0); Blood Urea Nitrogen 11 mg/dL (8-24); Bun/Creatinine Ratio 13.5 (12.0-20.0); CO2, Blood 32 mmol/L (21-32); Calcium, Blood 8.3 mg/dL (8.5-10.1); Chloride, Blood 105 mmol/L (98-108); Creatinine, Blood 0.81 mg/dL (0.60-1.20); Globulin, Blood 5.5 g/dL (2.2-4.0); Glomerular Filtration Rate >60 (60-); Glucose, Blood 107 mg/dL (70-99); Potassium, Blood 3.3 mmol/L (3.5-5.5); Sodium, Blood 141 mmol/L (136-145); Total Protein, Blood 7.9 g/dL (6.4-8.2)
[2017-06-20] MEDS ORDERED: Norco 10-325 T1 EACH PO (13:16)
[2017-06-20] MEDS ORDERED: AZIT500 PO (13:17)
== END 2017-06-20 15:17 | disposition home or self-care (01) | DRG 193 ==
LOC: ER 15:35 → MEDS 20:20 → ENPENDDIS 06-20 10:00 → MEDS 06-20 15:17
PROVIDERS: Internal Medicine; Physician Assistant
DX: J18.9 Pneumonia, unspecified organism (principal); J96.01 Acute respiratory failure with hypoxia; Z68.41 Body mass index [BMI] 40.0-44.9, adult; N39.0 Urinary tract infection, site not specified; Z86.718 Personal history of other venous thrombosis and embolism; N40.0 Benign prostatic hyperplasia without lower urinary tract symptoms; D64.9 Anemia, unspecified; Z66 Do not resuscitate; E66.9 Obesity, unspecified; E87.6 Hypokalemia; T50.2X5A Adverse effect of carbonic-anhydrase inhibitors, benzothiadiazides and other diuretics, initial encounter; G47.33 Obstructive sleep apnea (adult) (pediatric); I12.9 Hypertensive chronic kidney disease with stage 1 through stage 4 chronic kidney disease, or unspecified chronic kidney disease; N18.9 Chronic kidney disease, unspecified; E11.22 Type 2 diabetes mellitus with diabetic chronic kidney disease
CPT/HCPCS: 36415; 71046; 71260; 80048; 80053; 82947; 83036; 85025; 87804; 94640; 94660; 94760; 94762; 96361; 96365; 99285; J0456; J0696; J1815; J7030; J7050; Q9967

== ENCOUNTER 2017-06-27 00:05 | Day surgery (SDC) | payer OTHER ==
[~2017-06-27 00:05] MED LIST changes: +AZIT500 PO; +BUME2 PO; +Ferrex 150 For1 EACH PO; +MAGOXI400 PO; +NITR100CA PO
== END 2017-06-27 23:22 | disposition home or self-care (01) ==
LOC: WOUND 00:05
PROC: 2W1MX6Z Compression of Left Lower Extremity using Pressure Dressing (ICD-10-PCS; principal; 2017-06-27)
DX: E11.622 Type 2 diabetes mellitus with other skin ulcer (principal); L97.922 Non-pressure chronic ulcer of unspecified part of left lower leg with fat layer exposed; I89.0 Lymphedema, not elsewhere classified; M70.21 Olecranon bursitis, right elbow; S60.512A Abrasion of left hand, initial encounter; I87.2 Venous insufficiency (chronic) (peripheral)
CPT/HCPCS: G0463

== ENCOUNTER 2017-07-04 10:00 | Day surgery (SDC) | payer OTHER | END 2017-07-04 12:05 | disposition home or self-care (01) | LOC: WOUND 10:00 | PROC: 0H5LXZZ Destruction of Left Lower Leg Skin, External Approach (ICD-10-PCS; principal; 2017-07-04) | PROC: 2W1RX6Z Compression of Left Lower Leg using Pressure Dressing (ICD-10-PCS; principal; 2017-07-04) | DX: L97.822 Non-pressure chronic ulcer of other part of left lower leg with fat layer exposed (principal); I89.0 Lymphedema, not elsewhere classified; M70.21 Olecranon bursitis, right elbow; S60.512A Abrasion of left hand, initial encounter; I87.2 Venous insufficiency (chronic) (peripheral) | CPT/HCPCS: G0463 ==

== ENCOUNTER 2017-07-11 10:00 | Day surgery (SDC) | payer OTHER | END 2017-07-11 14:01 | disposition home or self-care (01) | LOC: WOUND 10:00 | DX: Z48.00 Encounter for change or removal of nonsurgical wound dressing (principal); E11.622 Type 2 diabetes mellitus with other skin ulcer; L97.922 Non-pressure chronic ulcer of unspecified part of left lower leg with fat layer exposed; I89.0 Lymphedema, not elsewhere classified; M70.21 Olecranon bursitis, right elbow; S60.512A Abrasion of left hand, initial encounter; I87.2 Venous insufficiency (chronic) (peripheral) | CPT/HCPCS: G0463 ==

== ENCOUNTER → 2017-07-17 | Outpatient (CLI) | payer OTHER ==
[2017-07-17 13:49] LABS: Percent Saturation 22.4 % (20.0-50.0)
== END ==
LOC: LAB SHORT 12:37
PROVIDERS: Internal Medicine Hematology & Oncology
DX: E53.8 Deficiency of other specified B group vitamins (principal); D63.1 Anemia in chronic kidney disease; D50.0 Iron deficiency anemia secondary to blood loss (chronic)
CPT/HCPCS: 82607; 82728; 82746; 83540; 83550

== ENCOUNTER 2017-07-18 09:53 | Day surgery (SDC) | payer OTHER | END 2017-07-18 11:42 | disposition home or self-care (01) | LOC: WOUND 09:53 | DX: Z48.00 Encounter for change or removal of nonsurgical wound dressing (principal); L97.922 Non-pressure chronic ulcer of unspecified part of left lower leg with fat layer exposed; I89.0 Lymphedema, not elsewhere classified; M70.21 Olecranon bursitis, right elbow; S60.512A Abrasion of left hand, initial encounter; I87.2 Venous insufficiency (chronic) (peripheral) | CPT/HCPCS: G0463 ==

== ENCOUNTER 2017-07-25 10:00 | Day surgery (SDC) | payer OTHER | END 2017-07-25 11:18 | disposition home or self-care (01) | LOC: WOUND 10:00 | DX: E11.622 Type 2 diabetes mellitus with other skin ulcer (principal); L97.922 Non-pressure chronic ulcer of unspecified part of left lower leg with fat layer exposed; I89.0 Lymphedema, not elsewhere classified; M70.21 Olecranon bursitis, right elbow; S60.512A Abrasion of left hand, initial encounter; I87.2 Venous insufficiency (chronic) (peripheral) | CPT/HCPCS: G0463 ==

== ENCOUNTER → 2017-07-29 | Outpatient (CLI) | payer OTHER | LOC: PLD 11:20 → LAB SHORT 11:20 | DX: D48.5 Neoplasm of uncertain behavior of skin (principal) | CPT/HCPCS: 88305 ==

== ENCOUNTER 2017-07-31 07:54 | Day surgery (SDC) | payer OTHER | END 2017-07-31 22:56 | disposition home or self-care (01) | LOC: WOUND 07:54 | PROC: 0H5LXZZ Destruction of Left Lower Leg Skin, External Approach (ICD-10-PCS; principal; 2017-07-31) | DX: E11.622 Type 2 diabetes mellitus with other skin ulcer (principal); L97.922 Non-pressure chronic ulcer of unspecified part of left lower leg with fat layer exposed; I89.0 Lymphedema, not elsewhere classified; M70.21 Olecranon bursitis, right elbow; S60.512A Abrasion of left hand, initial encounter; I87.2 Venous insufficiency (chronic) (peripheral) | CPT/HCPCS: 36415; 80069; 82728; 83540; 83550; 83735; 85018; G0463 ==

== ENCOUNTER 2017-08-08 09:30 | Day surgery (SDC) | payer OTHER | END 2017-08-08 10:42 | disposition home or self-care (01) | LOC: WOUND 09:30 | DX: E11.622 Type 2 diabetes mellitus with other skin ulcer (principal); L97.822 Non-pressure chronic ulcer of other part of left lower leg with fat layer exposed; I89.0 Lymphedema, not elsewhere classified; M70.21 Olecranon bursitis, right elbow; S60.512A Abrasion of left hand, initial encounter; I87.2 Venous insufficiency (chronic) (peripheral) | CPT/HCPCS: G0463 ==

== ENCOUNTER 2017-08-30 09:31 | Day surgery (SDC) | payer OTHER | END 2017-08-30 11:24 | disposition home or self-care (01) | LOC: WOUND 09:31 | DX: Z48.00 Encounter for change or removal of nonsurgical wound dressing (principal); L97.922 Non-pressure chronic ulcer of unspecified part of left lower leg with fat layer exposed; I89.0 Lymphedema, not elsewhere classified; M70.21 Olecranon bursitis, right elbow; S60.512A Abrasion of left hand, initial encounter; I87.2 Venous insufficiency (chronic) (peripheral) ==

== ENCOUNTER 2017-09-06 12:49 | Day surgery (SDC) | payer OTHER | END 2017-09-06 15:15 | disposition home or self-care (01) | LOC: WOUND 12:49 | DX: E11.622 Type 2 diabetes mellitus with other skin ulcer (principal); L97.822 Non-pressure chronic ulcer of other part of left lower leg with fat layer exposed; I89.0 Lymphedema, not elsewhere classified; M70.21 Olecranon bursitis, right elbow; S60.512A Abrasion of left hand, initial encounter; I87.2 Venous insufficiency (chronic) (peripheral); Z79.4 Long term (current) use of insulin | CPT/HCPCS: G0463 ==

== ENCOUNTER 2017-09-11 10:22 | Day surgery (SDC) | payer OTHER | END 2017-09-11 10:46 | disposition home or self-care (01) | LOC: WOUND 10:22 | DX: Z48.00 Encounter for change or removal of nonsurgical wound dressing (principal); L97.922 Non-pressure chronic ulcer of unspecified part of left lower leg with fat layer exposed; I89.0 Lymphedema, not elsewhere classified; M70.21 Olecranon bursitis, right elbow; S60.512A Abrasion of left hand, initial encounter; I87.2 Venous insufficiency (chronic) (peripheral) | CPT/HCPCS: G0463 ==

== ENCOUNTER 2017-12-24 00:11 | Day surgery (SDC) | payer OTHER ==
[~2017-12-24 00:11] MED LIST changes: +AQUAPHOR99 GM TOP; +ASPERCREME76.5 GM TOP; +CLOB.05TO TOP; +SUPRAX400 MG PO
== END 2017-12-24 23:04 | disposition home health service (06) ==
LOC: WOUND 00:11
DX: E11.622 Type 2 diabetes mellitus with other skin ulcer (principal); E11.621 Type 2 diabetes mellitus with foot ulcer; L97.822 Non-pressure chronic ulcer of other part of left lower leg with fat layer exposed; L97.529 Non-pressure chronic ulcer of other part of left foot with unspecified severity; I89.0 Lymphedema, not elsewhere classified; I87.2 Venous insufficiency (chronic) (peripheral); I10 Essential (primary) hypertension; K74.60 Unspecified cirrhosis of liver
CPT/HCPCS: 87070; 87075; 87205; G0463

== ENCOUNTER 2018-02-27 00:04 | Day surgery (SDC) | payer OTHER ==
[2018-02-27 11:39] LABS: Source, Urine Catheter
[2018-02-27 12:05] LABS: Appearance, Urine Turbid (Clear); Bilirubin, Urine Neg (Neg); Blood, Urine 5+ (Neg); Color, Urine Yellow (P-Yellow); Glucose Qualitative, Urine 4+ (Neg); Ketones, Urine Neg (Neg); Leukocyte Esterase, Urine 3+ (Neg); Nitrite, Urine Pos (Neg); Protein, Urine 2+ (Neg); Specific Gravity, Urine 1.015 (1.003-1.022); Urobilinogen, Urine NORM (Normal)
[2018-02-27 12:20] LABS: Bacteria Few /hpf; Red Blood Cells, Urine TNTC /hpf (0-2); Squamous Epithelial Cells Not Seen /hpf (Few); White Blood Cells, Urine TNTC /hpf (0-5)
== END 2018-02-27 11:33 | disposition home or self-care (01) ==
LOC: ATC 00:04
DX: N40.1 Benign prostatic hyperplasia with lower urinary tract symptoms (principal)
CPT/HCPCS: 51702; 81001; 87077; 87086; 87186